=== PATIENT | female | born 1950 | race Caucasian/White ===

== ENCOUNTER 2016-12-21 12:36 | Inpatient (IN) | payer OTHER ==
[~2016-12-21] VITALS: Ht 167.6 cm; Wt 53.5 kg
--- NOTE | ~2016-12-21 | D ---
[facility] [place] [address] DISCHARGE SUMMARY Name: KWABENA SANTOS Room #: 406-P [facility] IN M.R.#: [id number] Admission: 12/21/16 Attend Phys: Yao Choudhary MD Discharge: 12/23/16 Date of : 52 Report #: [id number] THIS REPORT FOR: //name// CC: Yao GILES unknown FINAL DIAGNOSES: 1. Left upper lung cavitary pneumonia. 2. Chronic hypoxic respiratory failure. HOSPITAL COURSE: The patient was transferred from [facility] for evaluation of possible left upper lung mass. CT report from [facility] was reviewed and compared to our CT here. She has a known history of Pseudomonas cavitary pneumonia in the left upper lung. ID and Pulmonary service assessed her here. Ultimately, the decision on plan of care was to continue IV antibiotics and no invasive treatment at this time. She will likely need a followup CAT scan in 3-4 weeks. PHYSICAL EXAMINATION: GENERAL: On the day of discharge, she was resting in bed in no distress. VITAL SIGNS: Stable. Oxygenation was good with trach shield as usual. LUNGS: Clear. HEART: Regular. ABDOMEN: Soft. EXTREMITIES: Showed no edema. DISPOSITION: She will be transferred back to [facility] with IV antibiotics and continued current care. I have recommended to them followup CT in 3-4 weeks. <ELECTRONICALLY SIGNED> By: Yao Choudhary MD 12/24/16 0835 [id number] MD cassidy Villagomez
--- NOTE | ~2016-12-21 | HC ---
[facility] [place] [address] CONSULTATION Name: KWABENA SANTOS Room #: 406-P [facility] IN M.R.#: [id number] Admission: 12/21/16 Attend Phys: Yao Choudhary MD Discharge: 12/23/16 Date of : 52 Report #: [id number] THIS REPORT FOR: //name// CC: Yao GILES unknown DATE OF SERVICE: 12/21/2016 IMPRESSION: 1. Large thick walled cavitary lesion, 8 x 7 x 6 x 10.6 with bronchial narrowing, question. 2. Trach with chronic hypoxic respiratory failure. 3. Oropharyngeal dysphagia. 4. Metabolic encephalopathy, improved per Dr. Lino Gambino. 5. Protein calorie malnutrition. PLAN: Send off cultures, await outside studies, antibiotics per ID, DVT prophylaxis. We will follow closely with you. HISTORY OF PRESENT ILLNESS: A 66-year-old female admitted from [facility]. I do not have records, did discuss with Dr. Lino Gambino. He relates she is doing much better compared to prior, did have a cavitary left upper lobe pneumonia, has trach and PEG tube. I am not sure of the time spent at [facility]. I assume that the patient has had an evaluation of airway when she had her trach, but we will obtain these records. She had a CT chest last week showing a questionable mass and was admitted here. The patient is unable to give me a history. MEDICATIONS: Have included albuterol, loratadine, baclofen, metoprolol, lisinopril, aspirin, hydrocodone, Keppra, duloxetine, Seroquel, lorazepam, zolpidem, potassium, Flonase, Zofran, Pepcid. ALLERGIES: PENICILLIN, SULFA AND DICLOFENAC. FAMILY HISTORY, SOCIAL HISTORY, SURGERIES: Unknown at this time. We will obtain. REVIEW OF SYSTEMS: The patient relates feels better and does have cough, productive sputum. No definite chest pain or palpitation, no nausea or vomiting, does not recall what happened at prior hospital. PHYSICAL EXAMINATION: VITAL SIGNS: Temperature 97, pulse 96, respirations 18, BP 99/63. EYES: Negative icterus. NECK: Trachea in place. LUNGS: Coarse left. [facility] [address] [place] [address] CONSULTATION Name: KWABENA SANTOS Room #: 406-P [facility] IN M.R.#: [id number] Admission: 12/21/16 Attend Phys: Yao Choudhary MD Discharge: 12/23/16 Date of : 52 Report #: [id number] HEART: Regular. ABDOMEN: Bowel sounds present. PEG tube in place. EXTREMITIES: Showed no edema or cyanosis. Moves all extremities. LABORATORY DATA: White count 13.2, hemoglobin 10.4, platelets 485. Potassium 5.1, BUN 9, creatinine 0.5, albumin 2.1. CT chest was reviewed. We will follow closely with you. <ELECTRONICALLY SIGNED> By: Jacob Tripathi MD 12/28/16 0535 [id number] Jacob Tripathi MD /nt
--- NOTE | ~2016-12-21 | CNG ---
[facility] [place] [address] CYTO-NONGYN REPORT PROCEDURE Name: KWABENA SANTOS Room #: 406-P ADM IN M.R.#: [id number] Admission: 12/21/16 Date of : 52 Discharge: Report #: [id number] Path Case #: [id number] CYTOPATHOLOGY REPORT COLLECTION DATE: 12/22/2016 RECEIVED DATE: 12/22/2016 SUBMITTING PHYS: Dr. Jacob Tripathi OTHER PHYS: Dr. Yao Choudhary CLINICAL HISTORY: Lung mass SPECIMEN(S) RECEIVED: A.Sputum * * * * * * * * * * * * FINAL DIAGNOSIS: A. Sputum: - No malignant cells identified. Predominantly acute inflammation with rare squamous epithelial cells and alveolar macrophages identified. PATHOLOGIST: Malika Akhatr M.D. REPORT ELECTRONICALLY SIGNED BY: Malika Akhtar M.D. DATE/TIME: 12/23/2016 12:47 * * * * * * * * * * * * GROSS PATHOLOGY: A. Sputum: The specimen is submitted unfixed, labeled "Kwabena Santos". Received by the Cytology Department is less than one mL of thick white fluid. One ThinPrep slide was prepared. (mm 12.22.2016) [employer]ILD[employer] SUPERVISOR(S): Anna Reza, CT(ASCP), IAC INITIAL CPT CODE(S): A; 38261 Professional services performed by [facility] at [facility] [place] [address] Technical services performed by [facility] at [address] [place] [address]., [address], [place] [address]. [facility] [address] [place] [address], [address] [place] [address] PHONE: [phone] [facility] [address] [place] [address] CYTO-NONGYN REPORT PROCEDURE Name: KWABENA SANTOS Room #: 406-P ADM IN M.R.#: [id number] Admission: 12/21/16 Date of : 52 Discharge: Report #: [id number] Path Case #: [id number] DIRECTOR: Medhat Venegas M.D. * * * END OF REPORT * * *
--- NOTE | ~2016-12-21 | HC ---
[facility] [place] [address] CONSULTATION Name: KWABENA SANTOS Room #: 406-P ADM IN M.R.#: [id number] Admission: 12/21/16 Attend Phys: Yao Choudhary MD Discharge: Date of : 52 Report #: [id number] THIS REPORT FOR: //name// CC: Yao GILES unknown DATE OF SERVICE: 12/21/2016 REASON FOR CONSULTATION: I was asked to evaluate concerning pneumonia. I do not have her clinic number. HISTORY OF PRESENT ILLNESS: A 66-year-old who was initially treated in the [facility] where she was found to have tonic clonic seizures, respiratory failure without a cavitary pneumonia in the right lung with necrosis. She failed to wean from the ventilator. MRI scan revealed posterior reversible encephalopathy syndrome. She was transferred to [facility] on 11/02/2016 for further vent weaning. She had a tracheostomy and a PEG tube. During the hospitalization, sputum cultures revealed growth of Pseudomonas aeruginosa, fully susceptible. Her chest x-ray showed persistent right upper lobe infiltrate. Her white count was elevated, but over the ensuing several weeks she improved and was off the ventilator. By 12/03/2016, she was discharged to skilled unit for further care. She had completed 2 weeks of ceftazidime and tobramycin. Plan was to complete 4 weeks of ceftazidime with followup imaging studies. She subsequently had a CT scan of the chest which showed a large cavitary pneumonia and mass in the right upper lobe. She was therefore hospitalized at [facility] for further evaluation. She has had no fever, chills or sweats. She has had moderate amount of brown tracheal secretions as noted previously. ALLERGIES: PENICILLIN, SULFA, DICLOFENAC. She did tolerate Augmentin without issue and ceftazidime. MEDICATIONS: As noted on her MAR including ceftazidime. PAST MEDICAL HISTORY: COPD, fibromyalgia, anxiety, hyperlipidemia, bipolar disorder, appendectomy, bladder suspension surgery, carpal tunnel release, tonsillectomy, adenoidectomy. FAMILY HISTORY: Noncontributory. SOCIAL HISTORY: Smoker of cigarettes. No significant alcohol intake. REVIEW OF SYSTEMS: No GI or complaints. PHYSICAL EXAMINATION: [facility] [address] [place] [address] CONSULTATION Name: KWABENA SANTOS Room #: 406-P [facility] IN M.R.#: [id number] Admission: 12/21/16 Attend Phys: Yao Choudhary MD Discharge: Date of : 52 Report #: [id number] VITAL SIGNS: Afebrile, hemodynamically stable. GENERAL: She was alert and cooperative. She did have some confusion. HEENT: Remarkable for tracheostomy with small to moderate amount of brown tracheal secretions. IV access unremarkable. CHEST: Consolidation right upper posterior chest. HEART: Regular. ABDOMEN: Soft and nontender. PEG site unremarkable. EXTREMITIES: Unremarkable. LABORATORY STUDIES: CT scan and lab as reviewed. IMPRESSION: Pseudomonas aeruginosa, right upper lobe, cavitary pneumonia. Whether this is complication from emphysematous necrotic lung from primary pneumonia and aspiration or underlying malignancy is yet to be determined. From her history, it is suspected that this is an aspiration with necrotic lung and secondary pseudomonas infection. Recommend continuing antipseudomonal coverage. We will avoid Pulmonary Medicine evaluation. <ELECTRONICALLY SIGNED> By: Lino Gambino MD 12/22/16 [phone] Lino Gambino MD /nt
--- NOTE | ~2016-12-21 | H ---
[facility] [place] [address] HISTORY AND PHYSICAL Name: KWABENA SANTOS Room #: 406-P ADM IN M.R.#: [id number] Admission: 12/21/16 Attend Phys: Yao Choudhary MD Discharge: Date of : 52 Report #: [id number] THIS REPORT FOR: //name// CC: Yao GILES unknown DATE OF SERVICE: 12/21/2016 CHIEF COMPLAINT: Cough and congestion. HISTORY OF PRESENT ILLNESS: The patient is a 66-year-old female, who was transferred and admitted from [facility] for evaluation of left chest cavitary pneumonia. History is very limited as there are not many records available, and she is somewhat forgetful due to her illness and cannot fill in the full details; however, I spoke to the nursing and respiratory therapy staff at the skilled facility and with Dr. Lino Gambino, who knows her from following Infectious Disease from the pneumonia. She was apparently admitted to [facility] in [place], some months ago with pneumonia and was diagnosed with a cavitating left upper lobe pneumonia. She developed respiratory failure, which appears to have required ventilation, and ultimately, the placement of a tracheostomy tube and PEG tube. According to Dr. Gambino, this cultured out pseudomonas, and she has been receiving antibiotics. She transferred over to [facility] facility, I believe for respiratory care, and there may be some weaning of ventilator at that time. She has completed that course, and then transferred to the care home unit for ongoing respiratory care. At this point, she has been weaned from the ventilator, and has her trach capped during the day and she wears a trach shield 40% at night. She is still coughing up thick copious green and brown sputum in our respiratory therapy, suctioning her quite frequently with very similar sputum. She was complaining of some left upper chest pain, last week and a CAT scan was obtained with contrast at [facility]. This revealed a large approximately 7 cm cavitary mass with air and fluid in the left upper lung, and speaking with Dr. Gambino, this seems similar to previous scans and clinically, she seems better from her time at the LTAC facility. PAST MEDICAL HISTORY: Unknown. FAMILY HISTORY: Unknown. PAST SURGICAL HISTORY: Unknown. ALLERGIES: PENICILLIN, SULFA, AND DICLOFENAC. MEDICATIONS: Claritin, Fortaz, DuoNeb, baclofen, Lopressor, Prinivil, aspirin, hydrocodone, Keppra, duloxetine, Seroquel, Ativan, Ambien, and Pepcid. [address] [address] HISTORY AND PHYSICAL Name: KWABENA SANTOS Room #: 406-P [facility] IN M.R.#: [id number] Admission: 12/21/16 Attend Phys: Yao Choudhary MD Discharge: Date of : 52 Report #: [id number] REVIEW OF SYSTEMS: She denies headache, chest pain, nausea, vomiting, diarrhea, constipation, dysuria, or syncope. PHYSICAL EXAMINATION: VITAL SIGNS: Temperature of 36.1, pulse 96, respirations 19, blood pressure 99/63, O2 sat 96% on room air. GENERAL: She is awake and alert, pleasantly confused. HEAD AND NECK: Shows a tracheostomy tube in place. LUNGS: Clear anteriorly. HEART: Regular. ABDOMEN: Soft, normoactive bowel sounds, and PEG tube in place. EXTREMITIES: No cyanosis, clubbing, or edema. I reviewed lab and CT data. I spoke with Dr. Tripathi and Dr. Gambino. ASSESSMENT: 1. Cavitary pneumonia, left upper lobe. 2. Chronic hypoxic respiratory failure. 3. Oropharyngeal dysphagia. 4. Resolving metabolic encephalopathy. PLAN: Continue her antibiotics and other medications and minimize her any antihypertensive treatment at this point. Lovenox for DVT prophylaxis. We will see if there is any other investigations or invasive interventions that are required at this time. <ELECTRONICALLY SIGNED> By: Yao Choudhary MD 12/22/16 1241 [id number] Yao Choudhary MD /nt
[2016-12-21 13:15] VITALS: BP 99/63
[2016-12-21 13:54] LABS: ABSOLUTE NEUTROPHILS 10.3 thou/uL (1.4-8.2); BASOPHILS 0.6 % (0.0-2.0); EOSINOPHILS 1.4 % (0.0-3.0); HEMATOCRIT 32.1 % (37.0-47.0); HEMOGLOBIN 10.4 gm/dL (12.0-15.0); LYMPHOCYTES 14.1 % (24.0-44.0); MCH 29.8 pg (26.0-34.0); MCHC 32.5 g/dL (28.0-37.0); MCV 91.6 fL (80.0-100.0); MONOCYTES 5.8 % (1.0-8.0); PLATELET COUNT 485 thou/uL (150-400); POLYS 78.1 % (36.0-66.0); RBC 3.51 mil/uL (4.20-5.00); RDW 14.7 % (10.5-14.5); WBC 13.2 thou/uL (4.0-11.0)
[2016-12-21] MEDS ORDERED: BAYER CHEWABLE81 MG PO (13:58)
[2016-12-21] MEDS ORDERED: CYMBALTA60 MG PO (13:59)
[2016-12-21] MEDS ORDERED: FLONASE 0.05%50 MCG NASAL (13:59)
[2016-12-21] MEDS ORDERED: PRINIVIL20 MG PO (14:00)
[2016-12-21] MEDS ORDERED: LORATIDINE 10 M10 M1 PO (14:00)
[2016-12-21 14:01] LABS: MANUAL DIFF NO
[2016-12-21] MEDS ORDERED: POTASSIUM20 PO (14:01)
[2016-12-21] MEDS ORDERED: PEPCID20 MG PO (14:02)
[2016-12-21] MEDS ORDERED: KEPPRA 500 MG500 M1 PO (14:02)
[2016-12-21] MEDS ORDERED: LOPRESSOR50 PO (14:03)
[2016-12-21] MEDS ORDERED: LIORESAL 10 MG10 MG PO (14:04)
[2016-12-21] MEDS ORDERED: LIDODERM 5%1 PATC1 TRANSDERM (14:04)
[2016-12-21] MEDS ORDERED: TYLENOL325 MG PO (14:06)
[2016-12-21] MEDS ORDERED: ALBUTEROL2.5 MG/31 INH (14:07)
[2016-12-21] MEDS ORDERED: HYDROCODON-ACE1 EAC7 PO (14:08)
[2016-12-21] MEDS ORDERED: NORCO 5-325 TA1 EACH PO (14:08)
[2016-12-21 14:09] LABS: ALBUMIN 2.1 g/dL (3.4-5.0); CALCIUM 9.2 mg/dL (8.5-10.1); CREATININE 0.5 mg/dL (0.6-1.0); POTASSIUM 5.1 mmol/L (3.5-5.1); TOTAL BILIRUBIN 0.1 mg/dL (<0.1-1.0); TOTAL PROTEIN 6.6 g/dL (6.4-8.2)
[2016-12-21] MEDS ORDERED: ATIVAN1 MG PO (14:09)
[2016-12-21] MEDS ORDERED: AMBIEN 5 MG TABL5 M1 PO (14:10)
[2016-12-21] MEDS ORDERED: ONDANSETRON HCL4 M2 PO (14:11)
[2016-12-21] MEDS ORDERED: SEROQUEL 25 MG25 M1 PO (14:17)
[2016-12-21 20:00] VITALS: BP 106/91
[2016-12-21 23:46] VITALS: BP 119/72
[2016-12-21] MEDS ORDERED: DIFLUCAN200 MG PO (23:53)
[2016-12-21] MEDS ORDERED: TOBRAMYCIN300 MG/7.5 INH (23:57)
[2016-12-22] MEDS ORDERED: BISACODYL SUPP10 MG RECTAL
[2016-12-22] MEDS ORDERED: MIRALAX17 GM PO (00:04)
[2016-12-22] MEDS ORDERED: TAZICEF IV (00:06)
[2016-12-22 04:00] VITALS: BP 136/71
[2016-12-22 15:54] VITALS: BP 122/77
[2016-12-22 19:51] VITALS: BP 128/76
[2016-12-23 05:23] VITALS: BP 116/68
[2016-12-23 08:00] VITALS: BP 132/85
[2016-12-23] MEDS ORDERED: LOPRESSOR25 PO (08:54)
[2016-12-23] MEDS ORDERED: ENOXAPARIN40 MG/0.1 SUBQ (08:54)
[2016-12-23] MEDS ORDERED: BACLOFEN 10MG T10 MG PO (08:54)
[2016-12-23] MEDS ORDERED: PEPCID20 MG PO (08:55)
[2016-12-23] MEDS ORDERED: AMBIEN 5 MG TABL5 M1 PO (08:55)
== END 2016-12-23 15:37 | DRG 208 ==
LOC: 4N 12:36
PROVIDERS: Internal Medicine Geriatric Medicine
PROC: 5A1935Z Respiratory Ventilation, Less than 24 Consecutive Hours (ICD-10-PCS; principal; 2016-12-21)
DX: J44.0 Chronic obstructive pulmonary disease with (acute) lower respiratory infection (principal); G93.41 Metabolic encephalopathy; J15.1 Pneumonia due to Pseudomonas; J96.11 Chronic respiratory failure with hypoxia; E46 Unspecified protein-calorie malnutrition; Z68.1 Body mass index [BMI] 19.9 or less, adult; F41.9 Anxiety disorder, unspecified; E78.5 Hyperlipidemia, unspecified; F31.9 Bipolar disorder, unspecified; B96.5 Pseudomonas (aeruginosa) (mallei) (pseudomallei) as the cause of diseases classified elsewhere; R13.12 Dysphagia, oropharyngeal phase; D72.829 Elevated white blood cell count, unspecified; D64.9 Anemia, unspecified; Z79.82 Long term (current) use of aspirin; Z88.0 Allergy status to penicillin; Z88.2 Allergy status to sulfonamides; Z90.49 Acquired absence of other specified parts of digestive tract; Z88.8 Allergy status to other drugs, medicaments and biological substances; Z79.899 Other long term (current) drug therapy
CPT/HCPCS: 10790